=== PATIENT | female | born 1985 | race African-American/Black ===

== ENCOUNTER 2017-05-29 15:56 | Emergency (ER) | payer SELFPAY ==
--- NOTE | 2017-05-29 17:23 | EDPHYS ---
Physician Documentation [facility] Name: Priyanka Gresham Age: 31 yrs Sex: Female : 1985 Arrival Date: 05/29/2017 Time: 15:58 Bed 11 Private MD: ED Physician Alok Meyers HPI: 05/29 17:17 This 31 yrs old Black Female presents to ER via Ambulatory with complaints of kb Laceration. 17:17 The patient has a laceration related to: cut on oyster shell occurred outdoors, and kb there are no complicating factors. The injury was accidental. The laceration(s) is(are) located on the dorsal aspect of distal phalanx of right ring finger. Onset: The symptoms/episode began/occurred just prior to arrival. Associated signs and symptoms: The patient has no apparent associated signs or symptoms. The patient has not experienced similar symptoms in the past. The patient has not recently seen a physician. 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 - Social history:: Smoking status: . ROS: 17:17 Constitutional: Negative for fever, chills, and weight loss, Cardiovascular: Negative kb for chest pain, palpitations, and edema, Respiratory: Negative for shortness of breath, cough, wheezing, and pleuritic chest pain, Abdomen/GI: Negative for abdominal pain, nausea, vomiting, diarrhea, and constipation, Back: Negative for injury and pain, : Negative for injury, bleeding, discharge, and swelling, MS/Extremity: Negative for injury and deformity, Neuro: Negative for headache, weakness, numbness, tingling, and seizure. 17:17 Skin: Positive for laceration(s), of the dorsal aspect of distal phalanx of right ring finger. Exam: 17:17 Constitutional: This is a well developed, well nourished patient who is awake, alert, kb and in no acute distress. Head/Face: Normocephalic, atraumatic. Chest/axilla: Normal chest wall appearance and motion. Nontender with no deformity. No lesions are appreciated. Cardiovascular: Regular rate and rhythm with a normal S1 and S2. No gallops, murmurs, or rubs. Normal PMI, no JVD. No pulse deficits. Respiratory: Lungs have equal breath sounds bilaterally, clear to auscultation and percussion. No rales, rhonchi or wheezes noted. No increased work of breathing, no retractions or nasal flaring. Abdomen/GI: Soft, non-tender, with normal bowel sounds. No distension or tympany. No guarding or rebound. No evidence of tenderness throughout. MS/ Extremity: Pulses equal, no cyanosis. Neurovascular intact. Full, normal range of motion. Neuro: Awake and alert, GCS 15, oriented to person, place, time, and situation. Cranial nerves II-XII grossly intact. Motor strength 5/5 in all extremities. Sensory grossly intact. Cerebellar exam normal. Normal gait. 17:17 Skin: injury, laceration(s), the wound is approximately 0.5 cm(s), of the dorsal aspect of distal phalanx of right ring finger, that can be described as clean, no foreign body, linear, without bleeding. Vital Signs: 16:13 BP 108 / 74; Pulse 65; Resp 18; Temp 98.7(O); Pulse Ox 100% on R/A; Weight 72.57 kg; hj Height 5 ft. 2 in. (157.48 cm); 16:13 Body Mass Index 29.26 (72.57 kg, 157.48 cm) MDM: 17:14 Patient medically screened. kb 17:17 Data reviewed: vital signs, nurses notes. Data interpreted: Pulse oximetry: on room air kb is 100 %. Interpretation: normal. 17:22 Counseling: I had a detailed discussion with the patient and/or guardian regarding: the kb historical points, exam findings, and any diagnostic results supporting the discharge/admit diagnosis, the need for outpatient follow up, a family practitioner, to return to the emergency department if symptoms worsen or persist or if there are any questions or concerns that arise at home. 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 Exp: iw 08/26/2017. Lot #: [id number]. } Route: IM; Site: right deltoid; 18:06 Drug: Doxycycline 100 mg Route: PO; iw Disposition: 05/30 07:19 Co-signature as Attending Physician, Alok Meyers MD I agree with the assessment and kdr plan of care. Disposition: 05/29/17 17:22 Discharged to Home. Impression: Laceration without foreign body of right ring finger without damage to nail. - Condition is Stable. - Discharge Instructions: Non-Sutured Laceration. - Prescriptions for Doxycycline Hyclate 100 mg Oral Tablet - take 1 tablet by ORAL route every 12 hours for 7 days; 14 tablet. Fluconazole 150 mg Oral Tablet - take 1 tablet by ORAL route one time; 1 tablet. - Medication Reconciliation Form, Thank You Letter, Antibiotic Education, Prescription Opioid Use form. - Follow up: Emergency Department; When: As needed; Reason: Worsening of condition. Follow up: Private Physician; When: 2 - 3 days; Reason: Recheck today's complaints, Continuance of care, Re-evaluation by your physician. Signatures: Citlalli Quesada, [employer]SEM[employer]-C [employer]SEM[employer]-Ckb Alok Meyers MD MD [facility] Brittny Waggoner, Alejandro Tran RN, RN RN
--- NOTE | 2017-05-29 17:23 | ER ---
Nurse's Notes [facility] Name: Priyanka Gresham Age: 31 yrs Sex: Female : 1985 Arrival Date: 05/29/2017 Time: 15:58 Bed 11 Private MD: Diagnosis: Laceration without foreign body of right ring finger without damage to nail Presentation: 05/29 16:11 Presenting complaint: Patient states: i cut my R ring finger with live oyster shell and hj cut it, im just concerned about bad bacterial count;. Transition of care: patient was not received from another setting of care. Complicating Factors: There are no complicating factors for this patient. Onset of symptoms was May 29, 2017 at 14:00. Care prior to arrival: 16:11 Method Of Arrival: Ambulatory 16:11 Acuity: MAVIS 4 hj Triage Assessment: 16:12 General: Appears in no apparent distress. uncomfortable, Behavior is calm, cooperative, hj appropriate for age. Pain: Complains of pain in dorsal aspect of distal phalanx of right ring finger and right ring fingernail. Injury Description: Laceration. 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 - Social history:: Smoking status: . Screenin:05 Abuse screen: Denies threats or abuse. Denies injuries from another. Nutritional iw screening: No deficits noted. Tuberculosis screening: No symptoms or risk factors identified. Fall Risk None identified. Assessment: 17:40 General: Appears in no apparent distress. comfortable, Behavior is calm, cooperative. iw Pain: Complains of pain in right ring fingernail. Neuro: Level of Consciousness is awake, alert, obeys commands, Oriented to person, place, time, situation. Cardiovascular: Patient's skin is warm and dry. Respiratory: Respiratory effort is even, unlabored. GI: Derm: Skin is pink, warm \T\ dry. normal. Musculoskeletal: Range of motion: intact in all extremities. Injury Description: Laceration is jagged, 0.5 to 2.5 cm long. Vital Signs: 16:13 BP 108 / 74; Pulse 65; Resp 18; Temp 98.7(O); Pulse Ox 100% on R/A; Weight 72.57 kg; hj Height 5 ft. 2 in. (157.48 cm); 16:13 Body Mass Index 29.26 (72.57 kg, 157.48 cm) ED Course: 15:58 Patient arrived in ED. mr 16:12 Triage completed. hj 16:13 Citlalli Quesada [facility]C [facility]. kb 16:13 Alok Meyers MD is Attending Physician. kb 16:13 Arm band placed on right wrist. hj 17:51 Brittny Waggoner, RN is Primary Nurse. iw 18:00 Patient has correct armband on for positive identification. iw 18:05 No provider procedures requiring assistance completed. Patient did not have IV access iw during this emergency room visit. 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 Exp: iw 08/26/2017. Lot #: [id number]. } Route: IM; Site: right deltoid; 18:06 Drug: Doxycycline 100 mg Route: PO; iw Outcome: 17:22 Discharge ordered by . kb 18:05 Discharged to home ambulatory, with family. iw 18:05 Condition: good 18:05 Discharge instructions given to patient, family, Instructed on discharge instructions, follow up and referral plans. medication usage, Demonstrated understanding of instructions, follow-up care, medications, Prescriptions given X 2. 18:06 Patient left the ED. iw Signatures: Citlalli Quesada FNP-C FNP-Ckb Rivera, Maria mr Brittny Waggoner, RN RN Alejandro Lyman RN RN Corrections: (The following items were deleted from the chart) 16:15 16:13 Pulse 65bpm; Resp 18bpm; Pulse Ox 100% RA; Temp 98.7F Oral; 72.57 kg; Height 5 hj ft. 2 in.; BMI: 29.2; hj
[2017-05-29] MEDS ORDERED: DOXYCYCLINE 100 MG CAP PO ONE (18:17)
[2017-05-29] MEDS ORDERED: TETANUS & DIPHTHERIA TOX,ADULT 0.5 ML VIAL ONE (18:18)
== END 2017-05-29 18:06 | disposition home or self-care (01) ==
LOC: ER 15:56
DX: S61.214A Laceration without foreign body of right ring finger without damage to nail, initial encounter (principal); W26.8XXA Contact with other sharp object(s), not elsewhere classified, initial encounter; Y93.9 Activity, unspecified; Y92.89 Other specified places as the place of occurrence of the external cause; Z88.6 Allergy status to analgesic agent; Z23 Encounter for immunization; F90.9 Attention-deficit hyperactivity disorder, unspecified type
CPT/HCPCS: 90714; 99283